=== PATIENT | female | born 1935 | race African-American/Black ===

== ENCOUNTER 2021-08-11 12:47 | Outpatient (REF) | payer MEDICARE, SELFPAY ==
--- NOTE | 2021-08-11 16:17 | MHC.AU.ANR ---
Adult Audiological Evaluation Date of Visit: 08/11/21 Reason for Appointment: Audiological evaluation due to concern for decreased hearing. Ms. Cornell reports that she hasn't been hearing clearly and has trouble following conversations. She often asks for repetition and has to turn the volume of the television up. She denies any tinnitus, vertigo, or history of ear infections. Does patient feel they have a hearing loss?: Yes If Yes, Which Ear?: Both Ears When Was Hearing Difficulty First Noticed?: Approximately one year ago Has hearing been tested previously?: No Hearing Handicap Inventory: HHIE SCORE: 16 Based on HHIE score, patient has: Mild to moderate perceived hearing handicap Medical History: Medical History: Unsteadiness, Mumps Medical History (Other): No other medical conditions reported Allergies: None reported Medication List: None reported Otoscopy: Right Ear: TM abnormal, patchy in appearance. Possibly thinner portions of TM Left Ear: Unremarkable Tympanometry: Tympanometry performed due to: Conductive component found in audiometric results Right Ear: Hypercompliant Middle Ear System (Type Ad), Triple-Peaked Tympanogram Left Ear: Normal Middle Ear System (Type A) Hearing Evaluation: Transducer(s) Used: Insert Earphones, Bone Conduction Method: Conventional Audiometry Stimuli Used: Pure Tones Right Ear: Description of Hearing: Moderate to moderately-severe mixed hearing loss from 250-1000 Hz, a moderate sensorineural hearing loss at 2000 Hz, and sloping to a severe to profound mixed hearing loss from 4898-5021 Hz. Air-bone gaps present: 20 dBHL at 500 and 3000 Hz, 25 dBHL at 1000 Hz, and 30 dBHL at 4000 Hz. Left Ear: Description of Hearing: Moderate sloping to severe sensorineural hearing loss from 250-8000 Hz. Speech Recognition Threshold (SRT): Method Used: Monitored Live Voice Stimuli Used: Spondee Words Right Ear: 60 dBHL Left Ear: 40 dBHL Word Discrimination: Method: Recorded Lists Word Lists Used: NU-6 Right Ear: 84% at 85 dBHL Left Ear: 88% at 75 dBHL Recommendations: Audiological re-evaluation in one year. Trial with amplification is recommended. Medical clearance from a physician is required before fitting. Referral to Ear, Nose, and Throat to address middle ear dysfunction and mixed hearing loss. Discussed the benefits of hearing aid use. Recommended Ms. Cornell contact her health insurance plan to determine if she has any hearing aid coverage. Recommended Ms. Cornell pursue hearing aids once medical clearance is obtained from an ENT physician. Diagnosis: Primary Diagnosis: H90.A31 Mixed HL, Unilateral Right Ear, W/Restricted Contralateral Secondary Diagnosis: H90.A22 SNHL, Unilatearl, Left Ear, W/Restricted Contralateral Hearing Services Performed: Services Performed: Comprehensive Audiological Evaluation (CPT 42165) Tympanometry (CPT 63752) Signature: Provider: Ross Bolanos, CCC-A
== END 2021-08-11 12:48 | disposition home or self-care (01) ==
LOC: HO.SH 12:47
PROVIDERS: Visit Provider Internal Medicine
DX: Z01.118 Encounter for examination of ears and hearing with other abnormal findings (principal); H90.A31 Mixed conductive and sensorineural hearing loss, unilateral, right ear with restricted hearing on the contralateral side; H90.A22 Sensorineural hearing loss, unilateral, left ear, with restricted hearing on the contralateral side
CPT/HCPCS: 92557; 92567